=== PATIENT | female | born 1960 | race Caucasian/White ===

== ENCOUNTER 2020-10-31 04:04 | Emergency (ER) | payer SELFPAY ==
[2020-10-31] MEDS ORDERED: Albuterol 8 GM Inhaler INH ONE (04:17)
[2020-10-31] MEDS ORDERED: Dexamethasone 4 MG/ML SDV IVPUSH ONE (04:20)
[2020-10-31] MEDS ORDERED: REMDESIVIR 200 MG in Sodium Chloride 0.9% 250 ML IV ONE (04:34)
--- NOTE | 2020-10-31 04:42 | EDM.PDOC ---
ED HPI GENERAL MEDICAL PROBLEM - General Chief Complaint: Respiratory Problem Stated Complaint: [facility] Time Seen by Provider: 10/31/20 04:10 Source of Information: Reports: Patient, EMS, Family History Limitations: Reports: Altered Mental Status, Respiratory Distress - History of Present Illness INITIAL COMMENTS - FREE TEXT/NARRATIVE: 60-year-old female, longtime smoker on no medications who does not seek medical care does not go to a doctor presents with 2 weeks of worsening illness and hypoxia. According to her daughter she has looked real ill for the last 5 days but kept refusing to go in or call the ambulance. Tonight the daughter finally called the ambulance, when they arrived they found her cyanotic, respiratory distress, with O2 saturations in the high 70s and she still refused transfer. They felt that she was not thinking clearly so they brought her into the hospital. On high flow O2 her saturations are now in the low to mid 80s, she still very short of breath but confused. She is running a low-grade fever. According to the patient she "had Covid" last year but I find this questionable because she has no medical records and does not go to a doctor and she would have had to be tested somewhere. I think she may have just assumed, she did not get vaccinated. Onset: Gradual Duration: Week(s): (2 weeks of illness) Associated Symptoms: Reports: Fever/Chills, Loss of Appetite, Malaise, Weakness - Related Data Allergies Allergy/AdvReac Type Severity Reaction Status Date / Time No Known Allergies Allergy Verified 10/31/20 04:09 Home Meds: Home Meds NK [No Known Home Meds] 10/31/20 [History] Past Medical History [employer] History: Reports: Social & Family History - Tobacco Use Tobacco Use Status *Q: Current Every Day Tobacco User Years of Tobacco use: 30 Packs/Tins Daily: 0.5 ED ROS GENERAL - Review of Systems Review Of Systems: See Below Reason Not Obtained: Brief review of systems was obtained from her daughter, patient c Constitutional: Reports: Fever, Chills, Malaise, Decreased Appetite Respiratory: Reports: Shortness of Breath, Cough Cardiovascular: Denies: Chest Pain GI/Abdominal: Denies: Nausea, Vomiting Neurological: Reports: Weakness. Denies: Headache ED EXAM, GENERAL - Physical Exam Exam: See Below Exam Limited By: Respiratory Distress General Appearance: Severe Distress Eye Exam: Bilateral Eye: Other (Can open her eyes to command, no jaundice) Respiratory/Chest: Respiratory Distress, Rhonchi (Scattered basilar rhonchi with expiratory wheezing but overall good air movement considering the patient's presentation) Cardiovascular: Regular Rate, Rhythm, Tachycardia GI/Abdominal: Soft, Non-Tender Extremities: Normal Inspection. No: Pedal Edema Neurological: Confused, Disoriented (Somewhat disoriented to place and time but answering most questions appropriately if able) Psychiatric: Flat Affect Skin Exam: Warm, Pallor Course - Vital Signs Last Recorded V/S: Last Vital Signs Temp 100.1 F 10/31/20 06:20 Pulse 100 10/31/20 06:59 Resp 30 H 10/31/20 06:59 BP 114/62 10/31/20 06:59 Pulse Ox 89 L 10/31/20 06:59 - Orders/Labs/Meds Orders: Active Orders 24 hr Category Date Time Status CULTURE BLOOD [BC] Urgent Lab 10/31/20 04:30 Received CULTURE BLOOD [BC] Urgent Lab 10/31/20 04:48 Received Blood Culture x2 Reflex Set [OM.PC] Urgent Oth 10/31/20 04:22 Ordered Labs: Laboratory Tests 10/31/20 10/31/20 10/31/20 Range/Units 04:18 04:48 04:48 WBC 7.4 (4.5-11.0) K/uL RBC 5.16 (3.30-5.50) M/uL Hgb 14.9 (12.0-15.0) g/dL Hct 42.9 (36.0-48.0) % MCV 83 (80-98) fL MCH 29 (27-31) pg MCHC 35 (32-36) % Plt Count 376 (150-400) K/uL Neut % (Auto) 79.6 H (36-66) % Lymph % (Auto) 5.4 L (24-44) % Benson % (Auto) 14.7 H (2-6) % Eos % (Auto) 0.0 L (2-4) % Baso % (Auto) 0.3 (0-1) % PT (9.5-12.0) sec INR (0.80-1.20) D-Dimer, Quantitative (0.0-500.0) ng/mL Puncture Site ABG pH (7.350-7.450) ABG pCO2 (35.0-42.0) mmHg ABG pO2 (75.0-100.0) mmHg ABG HCO3 (22.0-26.0) mmol/L ABG Total CO2 (21.0-25.0) mmol/L ABG O2 Saturation (95.0-98.0) % ABG O2 Content (15.0-23.0) %vol ABG Base Excess mm/L ABG Hemoglobin (12.0-16.0) g/dL ABG Oxyhemoglobin % ABG Carboxyhemoglobin (0.0-1.6) % ABG Methemoglobin % Leonel Test O2 Delivery Device Oxygen Flow Rate L Sodium 139 L (140-148) mmol/L Potassium 4.0 (3.6-5.2) mmol/L Chloride 103 (100-108) mmol/L Carbon Dioxide 24 (21-32) mmol/L Anion Gap 16.0 H (5.0-14.0) mmol/L BUN 33 H (7-18) mg/dL Creatinine 1.3 H (0.6-1.0) mg/dL Est Cr Clr Drug Dosing 41.93 mL/min Estimated GFR (MDRD) 42 L (>60) Glucose 123 H (74-106) mg/dL Lactic Acid (0.4-2.0) mmol/L Calcium 8.0 L (8.5-10.1) mg/dL Total Bilirubin 0.3 (0.2-1.0) mg/dL AST 56 H (15-37) U/L ALT 20 (12-78) U/L Alkaline Phosphatase 98 (46-116) U/L Lactate Dehydrogenase (82-234) U/L Troponin I (0.000-0.056) ng/mL C-Reactive Protein (0.0-0.3) mg/dL Total Protein 6.2 L (6.4-8.2) g/dL Albumin 2.4 L (3.4-5.0) g/dL Globulin 3.8 H (2.3-3.5) g/dL Albumin/Globulin Ratio 0.6 L (1.2-2.2) Amylase (25-115) U/L Lipase (73-393) U/L Procalcitonin ng/mL Urine Color (YELLOW) Urine Appearance (CLEAR) Urine pH (5.0-8.0) Ur Specific [place] (1.008-1.030) Urine Protein (NEGATIVE) mg/dL Urine Glucose (UA) (NEGATIVE) mg/dL Urine Ketones (NEGATIVE) mg/dL Urine Occult Blood (NEGATIVE) Urine Nitrite (NEGATIVE) Urine Bilirubin (NEGATIVE) Urine Urobilinogen (0.2-1.0) EU/dL Ur Leukocyte Esterase (NEGATIVE) Urine RBC (0-5) Urine WBC (0-5) Ur Epithelial Cells Amorphous Sediment Urine Bacteria Urine Mucus Urine Other SARS CoV-2 RNA Rapid NOAH Positive H 10/31/20 10/31/20 10/31/20 Range/Units 04:48 04:48 04:48 WBC (4.5-11.0) K/uL RBC (3.30-5.50) M/uL Hgb (12.0-15.0) g/dL Hct (36.0-48.0) % MCV (80-98) fL MCH (27-31) pg MCHC (32-36) % Plt Count (150-400) K/uL Neut % (Auto) (36-66) % Lymph % (Auto) (24-44) % Benson % (Auto) (2-6) % Eos % (Auto) (2-4) % Baso % (Auto) (0-1) % PT (9.5-12.0) sec INR (0.80-1.20) D-Dimer, Quantitative 957.82 H (0.0-500.0) ng/mL Puncture Site ABG pH (7.350-7.450) ABG pCO2 (35.0-42.0) mmHg ABG pO2 (75.0-100.0) mmHg ABG HCO3 (22.0-26.0) mmol/L ABG Total CO2 (21.0-25.0) mmol/L ABG O2 Saturation (95.0-98.0) % ABG O2 Content (15.0-23.0) %vol ABG Base Excess mm/L ABG Hemoglobin (12.0-16.0) g/dL ABG Oxyhemoglobin % ABG Carboxyhemoglobin (0.0-1.6) % ABG Methemoglobin % Leonel Test O2 Delivery Device Oxygen Flow Rate L Sodium (140-148) mmol/L Potassium (3.6-5.2) mmol/L Chloride (100-108) mmol/L Carbon Dioxide (21-32) mmol/L Anion Gap (5.0-14.0) mmol/L BUN (7-18) mg/dL Creatinine (0.6-1.0) mg/dL Est Cr Clr Drug Dosing mL/min Estimated GFR (MDRD) (>60) Glucose (74-106) mg/dL Lactic Acid 2.2 H (0.4-2.0) mmol/L Calcium (8.5-10.1) mg/dL Total Bilirubin (0.2-1.0) mg/dL AST (15-37) U/L ALT (12-78) U/L Alkaline Phosphatase (46-116) U/L Lactate Dehydrogenase (82-234) U/L Troponin I 0.843 H* (0.000-0.056) ng/mL C-Reactive Protein (0.0-0.3) mg/dL Total Protein (6.4-8.2) g/dL Albumin (3.4-5.0) g/dL Globulin (2.3-3.5) g/dL Albumin/Globulin Ratio (1.2-2.2) Amylase (25-115) U/L Lipase (73-393) U/L Procalcitonin ng/mL Urine Color (YELLOW) Urine Appearance (CLEAR) Urine pH (5.0-8.0) Ur Specific [place] (1.008-1.030) Urine Protein (NEGATIVE) mg/dL Urine Glucose (UA) (NEGATIVE) mg/dL Urine Ketones (NEGATIVE) mg/dL Urine Occult Blood (NEGATIVE) Urine Nitrite (NEGATIVE) Urine Bilirubin (NEGATIVE) Urine Urobilinogen (0.2-1.0) EU/dL Ur Leukocyte Esterase (NEGATIVE) Urine RBC (0-5) Urine WBC (0-5) Ur Epithelial Cells Amorphous Sediment Urine Bacteria Urine Mucus Urine Other SARS CoV-2 RNA Rapid NOAH 10/31/20 10/31/20 10/31/20 Range/Units 04:48 04:48 04:48 WBC (4.5-11.0) K/uL RBC (3.30-5.50) M/uL Hgb (12.0-15.0) g/dL Hct (36.0-48.0) % MCV (80-98) fL MCH (27-31) pg MCHC (32-36) % Plt Count (150-400) K/uL Neut % (Auto) (36-66) % Lymph % (Auto) (24-44) % Benson % (Auto) (2-6) % Eos % (Auto) (2-4) % Baso % (Auto) (0-1) % PT 16.8 H (9.5-12.0) sec INR 1.55 H (0.80-1.20) D-Dimer, Quantitative (0.0-500.0) ng/mL Puncture Site ABG pH (7.350-7.450) ABG pCO2 (35.0-42.0) mmHg ABG pO2 (75.0-100.0) mmHg ABG HCO3 (22.0-26.0) mmol/L ABG Total CO2 (21.0-25.0) mmol/L ABG O2 Saturation (95.0-98.0) % ABG O2 Content (15.0-23.0) %vol ABG Base Excess mm/L ABG Hemoglobin (12.0-16.0) g/dL ABG Oxyhemoglobin % ABG Carboxyhemoglobin (0.0-1.6) % ABG Methemoglobin % Leonel Test O2 Delivery Device Oxygen Flow Rate L Sodium (140-148) mmol/L Potassium (3.6-5.2) mmol/L Chloride (100-108) mmol/L Carbon Dioxide (21-32) mmol/L Anion Gap (5.0-14.0) mmol/L BUN (7-18) mg/dL Creatinine (0.6-1.0) mg/dL Est Cr Clr Drug Dosing mL/min Estimated GFR (MDRD) (>60) Glucose (74-106) mg/dL Lactic Acid (0.4-2.0) mmol/L Calcium (8.5-10.1) mg/dL Total Bilirubin (0.2-1.0) mg/dL AST (15-37) U/L ALT (12-78) U/L Alkaline Phosphatase (46-116) U/L Lactate Dehydrogenase 661 H (82-234) U/L Troponin I (0.000-0.056) ng/mL C-Reactive Protein 11.81 H (0.0-0.3) mg/dL Total Protein (6.4-8.2) g/dL Albumin (3.4-5.0) g/dL Globulin (2.3-3.5) g/dL Albumin/Globulin Ratio (1.2-2.2) Amylase (25-115) U/L Lipase (73-393) U/L Procalcitonin 0.10 ng/mL Urine Color (YELLOW) Urine Appearance (CLEAR) Urine pH (5.0-8.0) Ur Specific [place] (1.008-1.030) Urine Protein (NEGATIVE) mg/dL Urine Glucose (UA) (NEGATIVE) mg/dL Urine Ketones (NEGATIVE) mg/dL Urine Occult Blood (NEGATIVE) Urine Nitrite (NEGATIVE) Urine Bilirubin (NEGATIVE) Urine Urobilinogen (0.2-1.0) EU/dL Ur Leukocyte Esterase (NEGATIVE) Urine RBC (0-5) Urine WBC (0-5) Ur Epithelial Cells Amorphous Sediment Urine Bacteria Urine Mucus Urine Other SARS CoV-2 RNA Rapid NOAH 10/31/20 10/31/20 10/31/20 Range/Units 04:48 05:40 06:13 WBC (4.5-11.0) K/uL RBC (3.30-5.50) M/uL Hgb (12.0-15.0) g/dL Hct (36.0-48.0) % MCV (80-98) fL MCH (27-31) pg MCHC (32-36) % Plt Count (150-400) K/uL Neut % (Auto) (36-66) % Lymph % (Auto) (24-44) % Benson % (Auto) (2-6) % Eos % (Auto) (2-4) % Baso % (Auto) (0-1) % PT (9.5-12.0) sec INR (0.80-1.20) D-Dimer, Quantitative (0.0-500.0) ng/mL Puncture Site Lt radial ABG pH 7.426 (7.350-7.450) ABG pCO2 32.1 L (35.0-42.0) mmHg ABG pO2 47.2 L (75.0-100.0) mmHg ABG HCO3 20.7 L (22.0-26.0) mmol/L ABG Total CO2 17.9 L (21.0-25.0) mmol/L ABG O2 Saturation 82.7 L (95.0-98.0) % ABG O2 Content 17.4 (15.0-23.0) %vol ABG Base Excess -2.2 mm/L ABG Hemoglobin 15.4 (12.0-16.0) g/dL ABG Oxyhemoglobin 80.9 % ABG Carboxyhemoglobin 1.4 (0.0-1.6) % ABG Methemoglobin 0.8 % Leonel Test Pass O2 Delivery Device Hi flow nasal cannu Oxygen Flow Rate 15.0 L Sodium (140-148) mmol/L Potassium (3.6-5.2) mmol/L Chloride (100-108) mmol/L Carbon Dioxide (21-32) mmol/L Anion Gap (5.0-14.0) mmol/L BUN (7-18) mg/dL Creatinine (0.6-1.0) mg/dL Est Cr Clr Drug Dosing mL/min Estimated GFR (MDRD) (>60) Glucose (74-106) mg/dL Lactic Acid (0.4-2.0) mmol/L Calcium (8.5-10.1) mg/dL Total Bilirubin (0.2-1.0) mg/dL AST (15-37) U/L ALT (12-78) U/L Alkaline Phosphatase (46-116) U/L Lactate Dehydrogenase (82-234) U/L Troponin I (0.000-0.056) ng/mL C-Reactive Protein (0.0-0.3) mg/dL Total Protein (6.4-8.2) g/dL Albumin (3.4-5.0) g/dL Globulin (2.3-3.5) g/dL Albumin/Globulin Ratio (1.2-2.2) Amylase 29 (25-115) U/L Lipase 103 (73-393) U/L Procalcitonin ng/mL Urine Color Yellow (YELLOW) Urine Appearance Slightly cloudy A (CLEAR) Urine pH 6.0 (5.0-8.0) Ur Specific [place] 1.020 (1.008-1.030) Urine Protein 30 H (NEGATIVE) mg/dL Urine Glucose (UA) Negative (NEGATIVE) mg/dL Urine Ketones Trace H (NEGATIVE) mg/dL Urine Occult Blood Negative (NEGATIVE) Urine Nitrite Negative (NEGATIVE) Urine Bilirubin Small H (NEGATIVE) Urine Urobilinogen 1.0 (0.2-1.0) EU/dL Ur Leukocyte Esterase Negative (NEGATIVE) Urine RBC Not seen (0-5) Urine WBC 0-5 (0-5) Ur Epithelial Cells Rare Amorphous Sediment Moderate Urine Bacteria Moderate Urine Mucus Many Urine Other See note SARS CoV-2 RNA Rapid NOAH Meds: Medications Discontinued Medications Generic Name Dose Route Start Last Admin Trade Name Clarkq PRN Reason Stop Dose Admin Albuterol 0 gm 10/31/20 04:17 10/31/20 04:22 Albuterol 8 Gm Inhaler INH 10/31/20 04:18 2 inh ONETIME ONE Administration Dexamethasone 8 mg 10/31/20 04:20 10/31/20 04:26 Dexamethasone 4 Mg/Ml Sdv IVPUSH 10/31/20 04:21 8 mg ONETIME ONE Administration Remdesivir 200 mg/ Sodium 250 mls @ 250 mls/hr 10/31/20 04:34 10/31/20 06:13 Chloride IV 10/31/20 04:35 250 mls/hr ONETIME ONE Administration - Re-Assessments/Exams Free Text/Narrative Re-Assessment/Exam: 10/31/20 04:58 Chest x-ray was done which showed diffuse bilateral parenchymal infiltrates, likely Covid. A Covid was obtained as well as a CBC, CMP, D-dimer, lactic acid, blood cultures and troponin. The patient continued to steadfastly refuse any advanced medical care such as intubation or CPR, this was confirmed by the daughter. After 2 inhalations of an albuterol metered-dose inhaler, the patient was laid on her side and O2 saturations improved into the low 90s. She was given 8 mg of IV dexamethasone, hospitalist service was consulted for admission. 10/31/20 06:31 Patient slowly stabilized but still needed high flow oxygen. Blood gases showed a normal pH. Patient was being prepared for admission but the hospitalist service here in [place] did not feel comfortable with her being admitted without an ICU available especially in light of a mildly elevated troponin at 0.8. Dr. Underwood, hospitalist at [facility] kindly accepted the patient for transfer. 10/31/20 06:34 Prior to transfer patient again insisted she did not want intubation or CPR. We had to convince her to take remdesivir. Departure - Departure Time of Disposition: 07:37 Disposition: DC/Tfer to Other 70 Clinical Impression: COVID-19 - Discharge Information Referrals: PCP,None [Primary Care Provider] - Forms: ED Department Discharge Care Plan Goals: Patient will be transferred by EMS to [facility] for admission to ICU for further treatment and support for COVID-19 pneumonia. Patient reiterates she is DNR/DNI. Sepsis Event Note (ED) - Focused Exam Vital Signs: Vital Signs Temp Pulse Resp BP Pulse Ox 10/31/20 06:59 100 30 H 114/62 89 L 10/31/20 06:20 100.1 F 97 18 108/58 L 90 L 10/31/20 05:30 99.3 F 107 H 24 H 104/58 L 86 L 10/31/20 04:59 98 33 H 117/48 L 92 L 10/31/20 04:37 99.8 F 101 H 27 H 117/48 L 92 L 10/31/20 04:13 100.1 F 115 H 37 H 128/56 L 86 L 10/31/20 04:10 100.1 F 115 H 37 H 128/56 L 86 L - My Orders Last 24 Hours: My Active Orders 10/31/20 04:22 Blood Culture x2 Reflex Set [OM.PC] Urgent 10/31/20 04:30 CULTURE BLOOD [BC] Urgent 10/31/20 04:48 CULTURE BLOOD [BC] Urgent - Assessment/Plan Last 24 Hours: My Active Orders 10/31/20 04:22 Blood Culture x2 Reflex Set [OM.PC] Urgent 10/31/20 04:30 CULTURE BLOOD [BC] Urgent 10/31/20 04:48 CULTURE BLOOD [BC] Urgent
--- NOTE | 2020-10-31 04:54 | CRLCR ---
For Patients: As a result of the Century Cures Act, medical imaging exams and procedure reports are released immediately into your electronic medical record. You may view this report before your referring provider. If you have questions, please contact your health care provider. HISTORY: Hypoxia and cough. COMPARISON: None available FINDINGS: A portable erect AP view of the chest was obtained at 0429 hours. There is moderate patchy perihilar infiltrate in the left lung, with milder interstitial infiltrate throughout the rest of the left lung. There is mild patchy right perihilar and infrahilar infiltrate. The findings are nonspecific, but are suggestive of an atypical pneumonia, consider COVID-19. There is no sign of any pleural effusion. The heart is normal in size. The mediastinum is normal in appearance. The osseous structures are normal in appearance for the patient`s age. IMPRESSION: Moderate left perihilar infiltrate with milder infiltrate scattered throughout the rest of the left lung. Mild patchy right perihilar and infrahilar infiltrate. Findings suggest atypical pneumonia, consider COVID-19. Dictated by Marshal Lilly MD @ 10/31/2020 4:52:41 AM (Electronically Signed)
== END 2020-10-31 07:37 | disposition other institution (70) ==
LOC: EDBD 04:04 → JP.ED 04:04
DX: U07.1 COVID-19 (principal); Z72.0 Tobacco use
CPT/HCPCS: 36415; 36600; 51702; 71045; 80053; 81001; 82150; 82803; 83605; 83615; 83690; 84145; 84484; 85025; 85379; 85610; 86140; 87040; 87635; 94640; 96374; 99285; A9270; J1100; J7050; U0002